=== PATIENT | female | born 1985 | race Caucasian/White ===

== ENCOUNTER 2020-08-29 08:17 | Day surgery (SDC) | payer MEDICAID ==
[2020-08-22 13:02] LABS: BASOPHILS # (AUTO) 0.1 X10'3 (0-0.2); EOSINOPHILS # (AUTO) 0.3 X10'3 (0-0.9); EOSINOPHILS % (AUTO) 2.4 % (0-6); LYMPHOCYTES # (AUTO) 4.1 X10'3 (1.1-4.8); LYMPHOCYTES % (AUTO) 37.8 % (21-51); MEAN CORPUSCULAR HEMOGLOBIN 28.6 PG (27.0-31.0); MEAN CORPUSCULAR HGB CONC 33.5 g/dL (33.0-36.5); MEAN CORPUSCULAR VOLUME 85.4 FL (78-98); MEAN PLATELET VOLUME 7.3 FL (7.4-10.4); MONOCYTES # (AUTO) 0.7 X10'3 (0-0.9); MONOCYTES % (AUTO) 6.2 % (2-12); NEUTROPHILS # (AUTO) 5.7 X10'3 (1.8-7.7); NEUTROPHILS % (AUTO) 52.6 % (42-75); PRE OP HEMOGLOBIN 13.1 g/dL (12.0-16.0); PRE OP PLATELET COUNT 410 X10'3 (140-440); RED BLOOD COUNT 4.57 X10'6 (4.20-5.60); RED CELL DISTRIBUTION WIDTH 13.8 % (11.5-14.5)
[2020-08-22 13:11] LABS: PRE OP PROTIME 10.1 SECONDS (9.0-12.0)
[2020-08-22 13:14] LABS: ALBUMIN 3.5 G/DL (3.4-5.0); ALBUMIN/GLOBULIN RATIO 0.9 (1.1-1.5); ALKALINE PHOSPHATASE 67 IU/L (46-116); BLOOD UREA NITROGEN 9 MG/DL (7-18); BUN/CREATININE RATIO 10.8 (6.6-38.0); CALCIUM 8.5 MG/DL (8.5-10.1); CHLORIDE 105 MMOL/L (99-107); CREATININE 0.83 MG/DL (0.40-0.90); PRE OP ALT 44 U/L (30-65); PRE OP ANION GAP 5 (8-16); PRE OP AST 26 U/L (10-37); PRE OP BILIRUB, TOTAL 0.2 MG/DL (0.0-1.0); PRE OP GLUCOSE 72 MG/DL (70-104); PRE OP POTASSIUM 3.7 MMOL/L (3.4-5.1); PRE OP SODIUM 138 MMOL/L (135-145); TOTAL CARBON DIOXIDE 27.6 MMOL/L (24-32); TOTAL PROTEIN 7.6 G/DL (6.4-8.2); eGFR 79 ML/MIN
[2020-08-22 13:15] LABS: CLARITY,URINE CLEAR (Clear); COLOR,URINE YELLOW (Yellow); GLUCOSE, URINE NEGATIVE (Neg); KETONES,URINE NEGATIVE (Neg); LEUKOCYTE ESTERASE ,URINE NEGATIVE (Neg); NITRITES, URINE NEGATIVE (Neg); OCCULT BLOOD,URINE NEGATIVE (Neg); PROTEIN,URINE NEGATIVE (Neg); UA COLLECTION TYPE CLN CATCH MIDSTREAM; UROBILINOGEN,URINE 0.2 E.U/dL (0.2-1.0)
[2020-08-29] VITALS (13 sets, daily range): BP systolic 132–165; BP diastolic 63–97
[~2020-08-29] VITALS: Ht 170.2 cm; Wt 95.3 kg
[~2020-08-29 08:17] MED LIST: BUPIVAcaine/PF 2.5 mg/ml (0.25%) 30ml vial ONE; ESOM40CA PO; ETON1VAG VG; NALT380S2 IM; ceFOXitin sod/dextrose 2g/50ml 50 ML IV ONE; famotidine 20mg tablet PO ONE; ringers solution, lacted 1,000 ML IV SCH
[2020-08-29] MEDS ORDERED: LIDOcaine 1% (10mg/ml) 2ml vial ONE (08:57)
[2020-08-29] MEDS ORDERED: morphine 2 MG/ML inj. syringe IV PRN (09:55)
[2020-08-29] MEDS ORDERED: ondansetron/PF 4mg/2ml inj IV PRN (09:55)
[2020-08-29] MEDS ORDERED: ringers solution, lacted 1,000 ML IV SCH (09:55)
[2020-08-29] MEDS ORDERED: proCHLORperazine 10 MG/2 ml inj IV PRN (09:55)
[2020-08-29] MEDS ORDERED: morphine 4 MG/ML inj SYRINge IV PRN (09:55)
[2020-08-29] MEDS ORDERED: meperidine/PF 25mg/ml syringe IV PRN ×3 (09:55)
[2020-08-29] MEDS ORDERED: sevoflurane 250ml liquid IH ONE (12:25)
[2020-08-29] MEDS ORDERED: ceFAZolin 1000mg inj ONE (12:25)
[2020-08-29] MEDS ORDERED: midazolam 2 mg/2 ml injection ONE (12:31)
[2020-08-29] MEDS ORDERED: propofol inj 20 ML IV ONE (12:32)
[2020-08-29] MEDS ORDERED: fentaNYL /PF 50mcg/ml 5ml ampule ONE (12:32)
[2020-08-29] MEDS ORDERED: LIDOcaine 2% (20mg/ml) 5ml vial ONE (12:32)
[2020-08-29] MEDS ORDERED: rocuronium 10mg/ml inj IV ONE (12:41)
[2020-08-29] MEDS ORDERED: dexamethasone sod phosphate 4mg/ml inj. ONE (12:41)
[2020-08-29] MEDS ORDERED: ondansetron/PF 4mg/2ml inj ONE (12:41)
[2020-08-29] MEDS ORDERED: metoprolol tartrate 1mg/ml inj IV ONE (12:44)
[2020-08-29] MEDS ORDERED: BUPIVACAINE liposomal/PF 13.3 MG/ML vial IM ONE (13:36)
[2020-08-29] MEDS ORDERED: BUPIVAcaine/PF 2.5mg/ml (0.25%) 10ml vial ONE (13:36)
[2020-08-29] MEDS ORDERED: acetaminophen 1,000mg/100ml IV 100 ML IV ONE (14:01)
[2020-08-29] MEDS ORDERED: labetalol 20mg/4ml (5mg/ml) syringe IV ONE (14:05)
--- NOTE | 2020-08-29 14:15 | NUR ---
ADMITTED TO PACU FROM OR ACCOMPANIED BY ANESTHESIA. INTIAL PHYSICAL ASSESSMENT DONE AND RECORDED. REPORT RECEIVED FROM ANESTHESIA.
[2020-08-29] MEDS ORDERED: HYDROcodone/acetaminophen 10/325mg tab PO ONE (15:40)
--- NOTE | 2020-08-29 16:30 | NUR ---
DISCHARGE CRITERIA MET, DISCHARGE INSTRUCTIONS GIVEN, DEMONSTRATES VERBAL UNDERSTANDING. DISCHARGED HOME IN GOOD CONDITION.
== END 2020-08-29 16:30 | disposition home or self-care (01) ==
LOC: PAS 08:17
PROVIDERS: ATTEND Surgery
DX: K43.9 Ventral hernia without obstruction or gangrene (principal); F17.210 Nicotine dependence, cigarettes, uncomplicated; G47.30 Sleep apnea, unspecified; E66.9 Obesity, unspecified; Z68.32 Body mass index [BMI] 32.0-32.9, adult; Z79.899 Other long term (current) drug therapy; Z79.01 Long term (current) use of anticoagulants; Z20.828 Contact with and (suspected) exposure to other viral communicable diseases
CPT/HCPCS: 36415; 49652; 64488; 80053; 81003; 82948; 85025; 85610; 85730; 86885; 86900; 86901; 87635; 93005; C1781; C9290; J0131; J0694; J1100; J2001; J2175; J2250; J2405; J2704; J3010; J3490; S2900; A4215; A4618; J0690; J7120

== ENCOUNTER 2023-12-06 11:04 | Emergency (ER) | payer MEDICAID ==
[~2023-12-06] VITALS: Ht 167.6 cm; Wt 97.0 kg
[~2023-12-06 11:04] MED LIST changes: -BUPIVAcaine/PF 2.5 mg/ml (0.25%) 30ml vial ONE; -ETON1VAG VG; +ETON1VAG14 VG; -ceFOXitin sod/dextrose 2g/50ml 50 ML IV ONE; -famotidine 20mg tablet PO ONE; -ringers solution, lacted 1,000 ML IV SCH
[2023-12-06 11:50] LABS: BASOPHILS # (AUTO) 0.1 X10'3 (0-0.2); BASOPHILS % (AUTO) 1.1 % (0-1); EOSINOPHILS # (AUTO) 0.4 X10'3 (0-0.9); EOSINOPHILS % (AUTO) 4.5 % (0-6); HEMATOCRIT 43.1 % (35.0-45.0); HEMOGLOBIN 14.6 g/dl (12.0-16.0); LYMPHOCYTES # (AUTO) 2.7 X10'3 (1.1-4.8); MEAN CORPUSCULAR HEMOGLOBIN 30.5 PG (27.0-31.0); MEAN CORPUSCULAR HGB CONC 33.8 g/dL (33.0-36.5); MEAN PLATELET VOLUME 7.1 FL (7.4-10.4); MONOCYTES # (AUTO) 0.6 X10'3 (0-0.9); NEUTROPHILS # (AUTO) 5.1 X10'3 (1.8-7.7); NEUTROPHILS % (AUTO) 57.4 % (42-75); PLATELET COUNT 382 X10'3 (140-440); RED BLOOD COUNT 4.79 X10'6 (4.20-5.60); WHITE BLOOD COUNT 8.9 X10'3 (4.5-11.0)
[2023-12-06 12:04] LABS: ALANINE AMINOTRANSFERASE 48 U/L (12-78); ALBUMIN 3.6 G/DL (3.4-5.0); ALBUMIN/GLOBULIN RATIO 0.8 (1.1-1.5); ALKALINE PHOSPHATASE 76 IU/L (46-116); ANION GAP 8 (8-16); ASPARTATE AMINO TRANSFERASE 31 U/L (10-37); BILIRUBIN,TOTAL 0.2 MG/DL (0.1-1.0); BLOOD UREA NITROGEN 10 MG/DL (7-18); BUN/CREATININE RATIO 12.2 (10.0-20.0); CALCIUM 8.7 MG/DL (8.5-10.1); CHLORIDE 103 MMOL/L (99-107); CREATININE 0.82 MG/DL (0.40-0.90); GLUCOSE 134 MG/DL (70-104); LIPASE 41 U/L (16-77); POTASSIUM 4.2 MMOL/L (3.5-5.1); SODIUM 136 MMOL/L (135-145); TOTAL CARBON DIOXIDE 25.2 MMOL/L (24-32); TOTAL PROTEIN 8.2 G/DL (6.4-8.2); eCRCL 89 ML/MIN; eGFR 79 ML/MIN
[2023-12-06 12:22] LABS: BILIRUBIN,URINE NEGATIVE (Neg); CLARITY,URINE CLEAR (Clear); COLOR,URINE YELLOW (Yellow); GLUCOSE, URINE NEGATIVE (Neg); KETONES,URINE NEGATIVE (Neg); LEUKOCYTE ESTERASE ,URINE NEGATIVE (Neg); NITRITES, URINE NEGATIVE (Neg); OCCULT BLOOD,URINE NEGATIVE (Neg); PH,URINE 5.5 (4.8-8.0); PROTEIN,URINE NEGATIVE (Neg); UROBILINOGEN,URINE 0.2 E.U/dL (0.2-1.0)
[2023-12-06 12:27] LABS: UA COLLECTION TYPE CLN CATCH MIDSTREAM
[2023-12-06 13:04] VITALS: BP 130/87; PULSE 89; RESP 20; TEMP 97.6; O2SAT 98
== END 2023-12-06 13:52 | disposition home or self-care (01) ==
LOC: ER 11:05
DX: R10.84 Generalized abdominal pain (principal); F12.10 Cannabis abuse, uncomplicated; Z79.899 Other long term (current) drug therapy
CPT/HCPCS: 36415; 76700; 80053; 81003; 83690; 85025; 99284